=== PATIENT | male | born 1990 | race Two or more races ===

== ENCOUNTER 2018-11-26 05:19 | Emergency (ER) | payer OTHER ==
[~2018-11-26] VITALS: Ht 167.6 cm; Wt 72.6 kg
[2018-11-26] MEDS ORDERED: HYDROcodone-ACET 10/325MG TAB PO ONE (07:00)
[2018-11-26] MEDS ORDERED: BACITRACIN TOP OINT 1 UD PKG TOP ONE ×2 (07:15→09:30)
[2018-11-26] MEDS ORDERED: HYDROcodone-ACET 5/325MG TAB PO ONE (07:15)
[2018-11-26] MEDS ORDERED: LIDOCAINE 1% (LOCAL ANESTH.) PF 5ml SDV ID ONE (07:15)
[2018-11-26] MEDS ORDERED: METHOCARBAMOL 500 MG TAB PO ONE (07:15)
[2018-11-26 09:41] VITALS: BP 125/75
== END 2018-11-26 09:48 | disposition home or self-care (01) ==
LOC: ER 05:19
DX: S02.32XA Fracture of orbital floor, left side, initial encounter for closed fracture (principal); S01.01XA Laceration without foreign body of scalp, initial encounter; S41.112A Laceration without foreign body of left upper arm, initial encounter; S01.81XA Laceration without foreign body of other part of head, initial encounter; F17.210 Nicotine dependence, cigarettes, uncomplicated; V43.52XA Car driver injured in collision with other type car in traffic accident, initial encounter; Y93.89 Activity, other specified; Y99.8 Other external cause status; Y92.410 Unspecified street and highway as the place of occurrence of the external cause
CPT/HCPCS: 12005; 12011; 70450; 70486; 72125; 72131

== ENCOUNTER 2018-12-06 13:24 | Emergency (ER) | payer OTHER ==
[~2018-12-06] VITALS: Ht 167.6 cm; Wt 72.6 kg
[2018-12-06 14:47] VITALS: BP 96/69
== END 2018-12-06 15:02 | disposition home or self-care (01) ==
LOC: ER 13:32
DX: S01.01XD Laceration without foreign body of scalp, subsequent encounter (principal); S41.112D Laceration without foreign body of left upper arm, subsequent encounter; F17.210 Nicotine dependence, cigarettes, uncomplicated; Z48.02 Encounter for removal of sutures; X58.XXXD Exposure to other specified factors, subsequent encounter
CPT/HCPCS: 99281; J7030

== ENCOUNTER 2022-11-07 17:44 | Emergency (ER) | payer BC, MEDICAID ==
[~2022-11-07] VITALS: Ht 167.6 cm; Wt 81.0 kg
[2022-11-07 19:10] VITALS: BP 105/63
[2022-11-07] MEDS ORDERED: IBUP-1456 PO (20:52)
[2022-11-07] MEDS ORDERED: AMOX875T4 PO (20:52)
== END 2022-11-07 21:30 | disposition home or self-care (01) ==
LOC: ER 17:44
DX: S01.511A Laceration without foreign body of lip, initial encounter (principal); F17.210 Nicotine dependence, cigarettes, uncomplicated; W18.09XA Striking against other object with subsequent fall, initial encounter; Y93.89 Activity, other specified; Y92.89 Other specified places as the place of occurrence of the external cause; Y99.8 Other external cause status
CPT/HCPCS: 12011

== ENCOUNTER 2022-12-26 21:12 | Emergency (ER) | payer BC, MEDICAID ==
[~2022-12-26] VITALS: Ht 167.6 cm; Wt 79.5 kg
[~2022-12-26 21:12] MED LIST: AMOX875T4 PO; IBUP-1456 PO
[2022-12-27] MEDS ORDERED: MORPHINE SULFATE INJ 2 MG/ml SYRG IM ONE (02:00)
[2022-12-27] MEDS ORDERED: ONDANSETRON ODT 4 MG TAB PO ONE (02:00)
[2022-12-27] MEDS ORDERED: CEPH500C PO (02:36)
[2022-12-27] MEDS ORDERED: IOHEXOL 350 MG/ML 100ML IJ ONE (02:36)
[2022-12-27] MEDS ORDERED: TRAM50TA2 PO (02:36)
[2022-12-27 06:00] VITALS: BP 128/86; PULSE 78; RESP 18; TEMP 97.8; O2SAT 98
== END 2022-12-27 07:06 | disposition home or self-care (01) ==
LOC: ER 21:12
DX: S51.811A Laceration without foreign body of right forearm, initial encounter (principal); F15.90 Other stimulant use, unspecified, uncomplicated; Z87.891 Personal history of nicotine dependence; Z79.1 Long term (current) use of non-steroidal anti-inflammatories (NSAID); Z79.899 Other long term (current) drug therapy; W26.0XXA Contact with knife, initial encounter; Y93.89 Activity, other specified; Y92.830 Public park as the place of occurrence of the external cause; Y99.8 Other external cause status
CPT/HCPCS: 12002; 73090; 73201; 96372; 99285; J2270; Q0162; Q9967